=== PATIENT | male | born 1975 | race American Indian/Alaskan Native ===

== ENCOUNTER 2017-03-29 17:50 | Emergency (ER) | payer BC, OTHER ==
[~2017-03-29] VITALS: Ht 185.4 cm; Wt 99.8 kg
== END 2017-03-29 20:37 | disposition home or self-care (01) ==
LOC: ER 17:50
DX: S61.411A Laceration without foreign body of right hand, initial encounter (principal); W45.8XXA Other foreign body or object entering through skin, initial encounter
CPT/HCPCS: 12002; 99283